=== PATIENT | male | born 1990 | race Caucasian/White ===

== ENCOUNTER 2019-06-12 11:06 | Emergency (ER) | payer SELFPAY ==
[2019-06-12 12:06] VITALS: BP 139/82
--- NOTE | 2019-06-12 13:45 | UC ---
Hand/Wrist HPI - HPI Summary HPI Summary: 29-year-old male who comes in today complaining of pain to his left distal middle finger and ring finger. He denies any injury to those areas. He states he has had some numbness in those fingers for about 5 days but just in the past 24 hours they became painful. He has a left wrist splint in place for wrist pain which he states is occasionally a tendinitis. - History Of Current Complaint Chief Complaint: UCUpperExtremity Stated Complaint: HAND COMPLAINT Time Seen by Provider: 06/12/19 12:40 Hx Obtained From: Patient ?: No Onset/Duration: Gradual Onset Severity Initially: Mild Severity Currently: Moderate Pain Intensity: 7 Character Of Pain: Dull, Aching Aggravating Factor(s): Other - Tender when he pushes on his Alleviating Factor(s): Nothing Associated Signs And Symptoms: Positive: Numbness/Tingling, Other - There is some discoloration to the left middle finger and the radial side of the ring finger. - Allergies/Home Medications Allergies/Adverse Reactions: Allergies Allergy/AdvReac Type Severity Reaction Status Date / Time No Known Allergies Allergy Verified 06/12/19 12:06 Home Medications: Home Medications Ibuprofen [Advil] 600 mg PO ONCE PRN 06/12/19 [History Confirmed 06/12/19] PMH/Surg Hx/FS Hx/Imm Hx Previously Healthy: Yes Other History Of: Negative For: HIV, Hepatitis B, Hepatitis C - Surgical History Surgical History: None - Family History Known Family History: Positive: None Negative: Renal Disease, Blood Disorder - Social History Alcohol Use: Occasionally Substance Use Type: None, Other - Please see the course of the patient's stay here. Smoking Status (MU): Current Every Day Smoker Amount Used/How Often: 1/2 ppd Length of Time of Smoking/Using Tobacco: 8 years - Immunization History Most Recent Tetanus Shot: 01/11/16 Review of Systems All Other Systems Reviewed And Are Negative: Yes Skin: Positive: Other - The patient's left middle and radial side of the fourth finger are mildly discolored but warm to touch. Neurovascular: Positive: Decreased Sensation - Only decreased sensation in the left middle finger. Patient states a few days ago it was numb and tingly but in the past 24 hours is painful at the tuft. Neurological: Positive: Paresthesia - The numbness and paresthesia has improved over the past 2 days., Numbness Is Patient Immunocompromised?: No Physical Exam Triage Information Reviewed: Yes Appearance: Well-Appearing, No Pain Distress, Well-Nourished Vital Signs: Initial Vital Signs Temp 98.7 F 06/12/19 12:02 Pulse 71 06/12/19 12:02 Resp 18 06/12/19 12:02 BP 139/82 06/12/19 12:02 Pulse Ox 100 06/12/19 12:02 Vital Signs Reviewed: Yes Musculoskeletal: Positive: Strength Intact, ROM Intact, Other: - The left middle finger and the radial side of the ring finger are mildly discolored but normal temperature. No evidence of trauma. Neurological: Positive: Alert, Muscle Tone Normal - Patient does have mildly decreased neuro sensation and poor capillary refill of his left middle and fourth fingers. The other fingers are normal color nontender. I'm able to feel a good radial pulse but not an ulnar pulse. Psychological Exam: Normal Skin: Positive: Other - See above notes. Hand/Wrist Course/Dx - Course Course Of Treatment: I consulted Dr. Heaton to come in and see the patient. She noted that the patient was mildly tremulous and we had him remove his wrist splint. The patient then admitted to using IV drugs and he had injected himself in the ulnar wrist area and he states immediately upon injection he had numbness of his middle and fourth fingers 5 days ago. Today he states the numbness has gone away but the fingers are now painful mostly the middle finger. We spoke to him about resources and he stated he recently moved to [place] because this is where his support system as and he states that he is in the process of stopping the use of illicit drugs. After consultation we decided an ultrasound should be done and the patient is agreeable to doing that even though he has no insurance. Ultrasound left upper extremity:REPORT: The deep LEFT internal jugular, subclavian, axial, brachial, radial, and ulnar veins are patent. The superficial basilic and cephalic veins are patent. 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 No arterial flow visualized between the third and fourth fingers. Arterial flow documented at the second and fourth interspaces. IMPRESSION: #. No evidence for LEFT upper extremity deep venous thrombosis. #. 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 No arterial flow visualized between the third and fourth fingers. Vascular surgery consultation suggested. The patient was advised of the above information. He is fairly distraught because he does not have health insurance however we discussed the need for specialist care. I called [facility] emergency room and they do not have a vascular surgeon available today. The patient is agreeable to going to [facility] emergency room. A disc was made of the sonogram and a written report given to him. He refused ambulance transport and signed out AGAINST MEDICAL ADVICE stating that he would drive directly there. I called the transfer center and advised them of the patient's impending arrival within the next hour. The Patient stated he needed to make a quick stop at his house to take care of his dogs and then he would leave immediately for [facility]. The seriousness of the arterial occlusion was discussed with him son several occasions and I believe he understands the gravity of not following through with a vascular specialist today. - Differential Dx/Diagnosis Provider Diagnosis: Arterial occlusion Discharge ED - Sign-Out/Discharge Documenting (check all that apply): Patient Departure All imaging exams completed and their final reports reviewed: Yes - Discharge Plan Condition: Stable Disposition: AGAINST MEDICAL ADVICE Referrals: No Primary Care Phys,NOPCP [Primary Care Provider] - Additional Instructions: You are to you are advised to go to [facility] emergency room via ambulance. Because you have refused ambulance transport and decided to sign out AGAINST MEDICAL ADVICE it is advised that you drive directly there for further care. - Billing Disposition and Condition Condition: STABLE Disposition: Against Medical Advice
== END 2019-06-12 15:37 | disposition left against medical advice (07) ==
LOC: UCEAST 11:06
DX: I70.208 Unspecified atherosclerosis of native arteries of extremities, other extremity (principal); F17.210 Nicotine dependence, cigarettes, uncomplicated
CPT/HCPCS: 99202; G0463

== ENCOUNTER 2022-11-09 09:25 | Observation (INO) ==
[2022-11-09 12:19] LABS: ABS Basophils 0.1 10^3/ul (0-0.2); ABS Lymphocytes 1.3 10^3/ul (1.0-4.8); ABS Monocytes 0.5 10^3/ul (0-0.8); ABS Neutrophils 2.5 10^3/ul (1.5-7.7); Eosinophil % 0.3 %; Hematocrit 50 % (42-52); Hemoglobin 17.3 g/dL (14.0-18.0); Lymphocyte % 30.2 %; Mean Corpuscular HGB Conc 34 g/dL (31-36); Mean Corpuscular Hemoglobin 30 pg (27-31); Mean Corpuscular Volume 86 fL (80-94); Mean Platelet Volume 7.7 fL (7.4-10.4); Nucleated Red Blood Cells % 0.5; Platelet Count 210 10^3/uL (150-450); Red Blood Count 5.83 10^6 /uL (4.18-5.48); Red Cell Distribution Width 14 % (10-15); White Blood Count 4.4 10^3/uL (3.5-10.8)
[2022-11-09 15:19] LABS: ALT 85 U/L (7-52); Albumin 4.1 g/dL (3.2-5.2); Albumin/Globulin Ratio 1.1 (1-3); Alkaline Phosphatase 97 U/L (35-149); Blood Urea Nitrogen 11 mg/dL (6-24); CO2 Carbon Dioxide 27 mmol/L (22-32); Calcium 9.4 mg/dL (8.6-10.3); Chloride 101 mmol/L (101-111); Creatinine, Serum 0.72 mg/dL (0.67-1.17); Globulin 3.8 g/dL (2-4); Glucose 92 mg/dL (70-100); Sodium 135 mmol/L (135-145); Total Protein 7.9 g/dL (6.4-8.9); eGFR CKD-EPI 122.9 (>60)
[2022-11-09 15:26] LABS: Anion Gap 7 mmol/L (2-11)
[2022-11-09] MEDS ORDERED: Nicotine PATCH 14 MG/24 HR PATCH TRANSDERM ONE (16:32)
[2022-11-09 16:42] LABS: Erythrocyte Sed Rate 15 mm/Hr (0-14)
[2022-11-09 16:45] LABS: Potassium Redraw 4.2 mmol/L (3.5-5.0)
[2022-11-09] MEDS ORDERED: Acetaminophen IV 1 GM/100ML 1,000 MG/100 ML BAG IV ONE (19:39)
[2022-11-09] MEDS ORDERED: fentaNYL 100 mcg/2 ml 50 MCG/ML VIAL ONE (19:44)
[2022-11-09] MEDS ORDERED: Midazolam 5 mg/5 ml VIAL 1 mg/ml 5 ml VIAL (5 mg) ONE (19:44)
[2022-11-09] MEDS ORDERED: Bupivacaine 0.5% 50 ML MDV VIAL ONE (19:59)
[2022-11-09] MEDS ORDERED: ceFAZolin 2 GM PREMIX 2 GM/50 ML BAG ONE (20:22)
[2022-11-09] MEDS ORDERED: Lidocaine 1% MPF 5 ML VIAL ONE (20:35)
[2022-11-09] MEDS ORDERED: Piperacillin/Tazobac ADVAN 3.375 GM in NS 0.9% 100 ml BAG 100 ML IV ONE (21:30)
[2022-11-09] MEDS ORDERED: Vancomycin 1,000 MG in NS 0.9% 250 ml 250 ML IVPB ONE (21:31)
[2022-11-09] MEDS ORDERED: Vancomycin per Pharmacy 1 EA NOTE FOLLOW UP SCH (22:00)
[2022-11-09] MEDS ORDERED: Zosyn per Pharmacy NOTE FOLLOW UP SCH (22:00)
[2022-11-09] MEDS ORDERED: Lactated Ringers 1000 ml BAG 1,000 ML IV SCH (22:00)
[2022-11-09] MEDS ORDERED: Vancomycin 1,250 MG IV x ONCE IVPB ONE (23:00)
[2022-11-10] MEDS: ZOSYN 3.375 GM Q8H per EXTENDED INFUSION IV SCH ×2 (04:45→11:49)
[2022-11-10] MEDS ORDERED: Vancomycin 1,250 MG in NS 0.9% 250 ml 250 ML IVPB SCH (08:00)
[2022-11-10 09:46] VITALS: BP 136/83
[2022-11-10] MEDS ORDERED: Nicotine PATCH 14 MG/24 HR PATCH TRANSDERM SCH (12:01)
[2022-11-11] MEDS ORDERED: Vancomycin Trough Check NOTE FOLLOW UP ONE (07:30)
[2022-11-11] MEDS ORDERED: Nicotine PATCH 14 MG/24 HR PATCH TRANSDERM SCH (09:00)
== END 2022-11-10 14:29 | disposition home or self-care (01) ==
LOC: ED 09:25 → EDHOLD 09:25 → MED 22:33
PROVIDERS: ADMIT Orthopaedic Surgery; ATTEND Orthopaedic Surgery